=== PATIENT | male | born 1990 | race Caucasian/White ===

== ENCOUNTER → 2021-07-29 | Outpatient (CLI) | payer SELFPAY ==
[2021-07-29 12:55] LABS: CHOLESTEROL 129 mg/dL (<200); LDL CHOLESTEROL 44 mg/dL (9-159); TRIGLYCERIDES 150 mg/dl (<150)
== END | disposition home or self-care (01) ==
LOC: LAB 00:15 → CARD 10:00 → LAB 10:00
PROVIDERS: ATTEND Family Medicine
DX: Z02.1 Encounter for pre-employment examination (principal)